=== PATIENT | female | born 1980 | race Hispanic/Latino ===

== ENCOUNTER 2024-07-30 07:00 | Day surgery (SDC) | payer MEDICAID ==
[2024-07-29 11:35] LABS: BASOPHILS # (AUTO) 0.02 K/uL (0.00-0.20); BASOPHILS % (AUTO) 0.2 % (0.0-5.0); EOSINOPHILS # (AUTO) 0.06 K/uL (0.00-0.70); EOSINOPHILS % (AUTO) 0.6 % (0.0-8.0); HEMATOCRIT 41.8 % (36-48); IMMATURE GRANULOCYTE ABSOLUTE 0.03 K/uL (0-1); LYMPHOCYTES # (AUTO) 2.8 K/uL (1.0-4.8); LYMPHOCYTES % (AUTO) 28.9 % (21.0-51.0); MEAN CORPUSCULAR HEMOGLOBIN 28.5 pg (27.0-33.0); MEAN CORPUSCULAR VOLUME 86.2 fL (79-99); MONOCYTES # (AUTO) 0.5 K/uL (0.1-1.0); MONOCYTES % (AUTO) 5.2 % (3.0-13.0); NEUTROPHILS # (AUTO) 6.3 K/uL (1.8-7.7); NEUTROPHILS % (AUTO) 64.8 % (40.0-77.0); PLATELET COUNT (AUTO) 321 K/uL (130-400); RED BLOOD CELL COUNT(AUTO) 4.85 MIL/uL (4.00-5.50); RED CELL DISTRIBUTION WIDTH 15.7 % (11.0-15.5); WHITE BLOOD COUNT (AUTO) 9.8 K/uL (4.8-10.8)
[2024-07-29 11:40] VITALS: BP 137/68; PULSE 74; RESP 18; TEMP 97.5
[2024-07-29 11:47] LABS: CREATININE 0.7 mg/dL (0.5-1.0); POTASSIUM 4.4 mmol/L (3.5-5.1)
[2024-07-29 11:49] LABS: INR <= 0.93 (0.85-1.15); PROTHROMBIN TIME 10.3 SEC (9.6-11.6)
[2024-07-29 11:51] LABS: PARTIAL THROMBOPLASTIN TIME 26.3 SEC (26.3-35.5)
--- NOTE | 2024-07-29 12:58 | EKG ---
[facility] Test Date: 2024-07-29 Test Time: 12:11:26 Pat Name: MARTINEZ DALE Department: REPLACED BY [facility] Room: Gender: F Horseradish Maker: [id number] : 1980 Requested By: ELIZABETH JAIMES Order Number: [id number] Reading MD: Jael Keane Measurements Intervals [place] Rate: 72 P: 69 AK: 164 QRS: 31 QRSD: 92 T: 31 QT: 404 QTc: 443 Interpretive Statements Sinus rhythm No previous ECG available for comparison Electronically Signed On 07-29-2024 16:59:22 FLASH OVEN OPERATOR by Jael Keane Please click the below link to view image of tracing.
[2024-07-30] VITALS (14 sets, daily range): BP systolic 109–158; BP diastolic 61–81; PULSE 75–84; RESP 15–20; TEMP 97.1–97.6
[~2024-07-30] VITALS: Ht 160 cm; Wt 103.4 kg
[~2024-07-30 07:00] MED LIST: AIRSUPRA IH; FLUT1BLS11 IH; HYDR12.54 PO; LOSA50TA64 PO; ROSU5TAB51 PO; TIOT4MIS2 IH
[2024-07-30] MEDS ORDERED: LACTATED RINGERS 1000ML 1,000 ML IV ONE (07:13)
[2024-07-30] MEDS ORDERED: dexaMETHasone SOD PHOSPHATE 10MG/ML 1ML VIAL ONE (07:14)
[2024-07-30] MEDS ORDERED: LIDOCAINE PF 100MG/5ML (2%) SYRINGE 5ML ONE (07:14)
[2024-07-30] MEDS ORDERED: GLYCOPYRROLATE 0.2 MG/ML 5 ML VIAL ONE (07:15)
[2024-07-30] MEDS ORDERED: ondanSETRON 4MG INJ ONE (07:15)
[2024-07-30] MEDS ORDERED: SUCCINYLCHOLINE CHLORIDE 20 MG/ML 10 ML VIAL ONE (07:15)
[2024-07-30] MEDS ORDERED: NEOSTIGMINE METHYLSULFATE 1MG/ML IV ONE (07:15)
[2024-07-30] MEDS ORDERED: rocuRONium bROMide 10MG/1ML 5ML VL ONE (07:15)
[2024-07-30] MEDS ORDERED: proPOFol 10 MG/ML 20ML VIAL IV ONE (07:16)
[2024-07-30] MEDS ORDERED: FENTanyl CITRate PF 50 MCG/1 ML 2ML VIAL ONE ×2 (07:16→10:22)
[2024-07-30] MEDS ORDERED: MIDAZOLAM HCL 1 MG/ML 2ML VIAL ONE (07:18)
[2024-07-30] MEDS ORDERED: IOHEXOL-350 50ML VIAL IV ONE (09:32)
[2024-07-30] MEDS: ceFAZolin SODIUM 2 GM VIAL ONE (10:22)
[2024-07-30] MEDS: BUPIvacaine/PF 0.5% 30ML VIAL ONE (11:30)
--- NOTE | 2024-07-30 11:46 | PN ---
GENERAL SURGERY PROGRESS NOTE Date/Time Patient Seen: [07/30/2024 12 ] Problem List: [ ] Interval History: [Postop day 0. Pain tolerable with p.r.n. medication. Physical Examination: ABD: [Incisions clean, dry and intact, Dermabond in place Vital Signs (last 8hr) Date Time Temp Pulse Resp B/P (MAP) Pulse Ox O2 Delivery O2 Flow Rate FiO2 07/30/24 07:19 97.2 83 18 109/61 98 Room Air 21 Laboratory: [ ] Hematology Labs: Test 07/29/24 11:05 Range/Units White Blood Count 9.8 4.8-10.8 K/uL Red Blood Count 4.85 4.00-5.50 MIL/uL Hemoglobin 13.8 12.0-16.0 g/dL Hematocrit 41.8 36-48 % Mean Corpuscular Volume 86.2 79-99 fL Mean Corpuscular Hemoglobin 28.5 27.0-33.0 pg Mean Corpuscular Hemoglobin Concent 33.0 32.0-36.0 g/dL Red Cell Distribution Width 15.7 H 11.0-15.5 % Platelet Count 321 130-400 K/uL Mean Platelet Volume 9.9 7.5-10.5 fL Immature Granulocyte % (Auto) 0.3 0-1 % Neutrophils (%) (Auto) 64.8 40.0-77.0 % Lymphocytes (%) (Auto) 28.9 21.0-51.0 % Monocytes (%) (Auto) 5.2 3.0-13.0 % Eosinophils (%) (Auto) 0.6 0.0-8.0 % Basophils (%) (Auto) 0.2 0.0-5.0 % Neutrophils # (Auto) 6.3 1.8-7.7 K/uL Lymphocytes # (Auto) 2.8 1.0-4.8 K/uL Monocytes # (Auto) 0.5 0.1-1.0 K/uL Eosinophils # (Auto) 0.06 0.00-0.70 K/uL Basophils # (Auto) 0.02 0.00-0.20 K/uL Absolute Immature Granulocyte (auto 0.03 0-1 K/uL Nucleated Red Blood Cells 0.0 0.0-0.19 % Chemistry Labs: Test 07/29/24 11:05 Range/Units Sodium Level 144 136-145 mmol/L Potassium Level 4.4 3.5-5.1 mmol/L Chloride Level 107 101-111 mmol/L Carbon Dioxide Level 29 21-32 mmol/L Blood Urea Nitrogen 13 7-18 mg/dL Creatinine 0.7 0.5-1.0 mg/dL Glomerular Filtration Rate Calc 111 >90 mL/min Random Glucose 108 H 70-105 mg/dL Total Calcium 9.2 8.5-10.1 mg/dL Coagulation Labs: Test 07/29/24 11:05 Range/Units Prothrombin Time 10.3 9.6-11.6 SEC Prothromb Time International Ratio <= 0.93 0.85-1.15 Activated Partial Thromboplast Time 26.3 26.3-35.5 SEC Diagnostics / Radiology: [Copy/Paste Echos/Imaging Report here] Impression and Plan: [Plan is for discharge home today as long as patient tolerating p.o. intake, ambulatory and pain under control. Discussed with patient and family. They understand and agree. ] ELIZABETH JAIMES MD Jul 30, 2024 11:46
[2024-07-30] MEDS: MEPERIDINE-PF 50 MG/ML SYG ONE (11:58)
--- NOTE | 2024-07-30 12:12 | OP ---
Operative Note: DATE OF PROCEDURE: 07/30/24 SURGEON: ELIZABETH JAIMES MD LOCKSMITH: Amado Jaimes p.a.-C ANESTHESIA: General and local ANESTHESIOLOGIST/NIGHT CLUB MANAGER[place] [facility] [facility] [place] PREOPERATIVE DIAGNOSIS: Cholelithiasis POSTOPERATIVE DIAGNOSIS: As above SYNOPSIS: Cholecystectomy with cholangiogram performed without complication PROCEDURE: Robot assisted cholecystectomy with intraoperative cholangiogram ESTIMATED BLOOD LOSS: Minimal INDICATIONS: As above DESCRIPTION OF PROCEDURE: After standard precautions and preparations were undertaken a Veress needle and optical trocar was used to enter the abdominal cavity. All other instruments were placed under direct vision. The robotic system was docked in the standard fashion. We began by retracting the fundus of the gallbladder cephalad and dissecting around the infundibulum. A critical view of safety was achieved by identifying to moura structures one vascular and one ductal. Placed clips on the vascular structure two on the staying side one on the going side. Placed one single clip on the going side of the ductal structure. A ductotomy was made which revealed the fascia bile and the cholangiogram catheter was placed. Cholangiogram revealed that this was in fact the cystic duct which we could trace down to the junction of the common hepatic and common bile duct and into the area of the duodenum with no signs of any filling defects. Catheter was removed and the duct was clipped with two on the staying side. Both the duct and cystic artery were divided and monopolar cautery was used to separate the gallbladder from the attachments of the gallbladder fossa. The specimen was placed in an Endo-Catch bag and removed from the abdominal cavity without issue. All instrument counts were verified as correct prior to ending the case and the clips were verified to be still in place on both the duct and artery. The patient tolerated the procedure well and was prepared for extubation and transferred to PACU in stable condition. ELIZABETH JAIMES MD Jul 30, 2024 12:12
--- NOTE | 2024-07-30 12:14 | HMCIMG ---
CHOLANGIO &/OR PANCRE INTRAOPE REASON: ROBOTIC DOUG W/IOC'S. COMPARISON: None TECHNIQUE: Intraoperative cholangiogram study was performed. 5 images were obtained. FINDINGS: Please see procedure report by referring physician. IMPRESSION: Intraoperative films.
== END 2024-07-30 13:03 ==
LOC: DAH 07:00
PROVIDERS: ATTEND Surgery
DX: K80.10 Calculus of gallbladder with chronic cholecystitis without obstruction (principal); F41.9 Anxiety disorder, unspecified; F32.A Depression, unspecified; E66.01 Morbid (severe) obesity due to excess calories; K76.0 Fatty (change of) liver, not elsewhere classified; R13.10 Dysphagia, unspecified; Z79.899 Other long term (current) drug therapy; Z90.710 Acquired absence of both cervix and uterus; Z68.41 Body mass index [BMI] 40.0-44.9, adult
CPT/HCPCS: 47563; S2900; 36415; 74300; 80048; 85025; 85610; 85730; 86850; 86900; 86901; 88304; 93005; J0330; J1100; J2003; J2175; J2250; J2405; J2704; J2710; J3010; J3490; J7030; J7120; Q9967; A4215; A4221; A4222; A4223; A4600; A4649; A4663; A6260; J0665; J0690